=== PATIENT | female | born 1975 | race Caucasian/White ===

== ENCOUNTER 2017-04-09 16:52 | Emergency (ER) | payer OTHER ==
--- NOTE | 2017-04-09 18:13 | PDOC ---
Rapid Medical Evaluation Chief Complaint: Vaginal Bleeding Time Seen by Provider: 04/09/17 18:09 Medical Evaluation: Allergies Allergy/AdvReac Type Severity Reaction Status Date / Time No Known Allergies Allergy Verified 04/09/17 18:10 04/09/17 18:10 pt c/o: 8 weeks , spotting since last week, went to [facility] last week and had u/s, saw Dr. Gabriel after ED visit and received rhogam, c/o mid suprapubic pain Pt on brief exam: vss Pt ordered for : ua, ucx, beta hcg, cbc, comp, and u/s pt to proceed to the ED: Discharge Disposition - Diagnosis Vaginal bleeding during - Referrals - Patient Instructions - Post Discharge Activity
[2017-04-09 18:14] VITALS: BP 118/51; PULSE 90; TEMP 97.8; BMI 38.0
[2017-04-09 19:00] LABS: URINE APPEARANCE CLOUDY; URINE BILIRUBIN NEGATIVE (NEGATIVE); URINE BLOOD 3+ (NEGATIVE); URINE COLOR YELLOW; URINE GLUCOSE (UA) NEGATIVE (NEGATIVE); URINE KETONE NEGATIVE (NEGATIVE); URINE LEUK ESTERASE TRACE (NEGATIVE); URINE NITRITE NEGATIVE (NEGATIVE); URINE UROBILINOGEN NEGATIVE mg/dL (0.2-1.0)
[2017-04-09 19:07] LABS: BASO % 1.2 % (0-2.0); EOS % 2.5 % (0-4.5); HEMATOCRIT 38.1 % (32.4-45.2); HEMOGLOBIN 12.7 GM/dL (10.7-15.3); MCH 28.1 pg (25.7-33.7); MCHC 33.2 g/dl (32.0-36.0); MEAN CELL VOLUME 84.6 fl (80-96); MEAN PLT VOLUME 8.6 fl (7.5-11.1); MONO % 6.1 % (3.8-10.2); NEUT % 66.2 % (42.8-82.8); PLATELET COUNT 318 K/MM3 (134-434); RBC 4.51 M/mm3 (3.60-5.2); RDW 14.4 % (11.6-15.6); WHITE BLOOD COUNT 12.8 K/mm3 (4.0-10.0)
[2017-04-09 19:08] LABS: URINE PROTEIN 2+ (NEGATIVE)
[2017-04-09 19:09] LABS: EPI CELLS RARE /HPF (FEW)
[2017-04-09 19:50] LABS: ALBUMIN 3.6 g/dl (3.4-5.0); ANION GAP 8 (8-16); BILIRUBIN,TOTAL 0.2 mg/dL (0.2-1.0); BLOOD UREA NITROGEN 13 mg/dL (7-18); CALCIUM 9.2 mg/dL (8.5-10.1); CHLORIDE 102 mmol/L (98-107); CO2 26 mmol/L (21-32); CREATININE 0.6 mg/dL (0.55-1.02); GLUCOSE,RANDOM 79 mg/dL (74-106); POTASSIUM 4.4 mmol/L (3.5-5.1); SGOT/AST 18 U/L (15-37); SGPT/ALT 24 U/L (12-78); SODIUM 136 mmol/L (136-145); TOT PROT 7.5 g/dl (6.4-8.2)
[2017-04-09 20:04] LABS: ALK PHOS 102 U/L (45-117)
--- NOTE | 2017-04-09 20:13 | PDOC ---
History of Present Illness - General History Source: Patient Exam Limitations: No Limitations - History of Present Illness Initial Comments: 04/09/17 20:14 The patient is a 8 weeks 41 year old female (), with a significant past medical history of an elected terminated one year ago, who presents to the emergency department with, approx. one week of intermittent vaginal bleeding. The patient reports she went to [facility] on March 31 for evaluation of the vaginal bleeding and was discharged. However , the patient reports that since then the vaginal bleeding has been on and off. The patient reports she followed up with her power tong operator Dr. Ga on April 02 for labs and a Rhogam shot. The patient reports that s/p the follow up visit with Dr. Ga the vaginal bleeding has continued on and off with associated lower pelvic cramping. She denies recent fevers, chills, headache or dizziness. She denies recent nausea, vomit, diarrhea or constipation. She denies recent dysuria, frequency, urgency. She denies recent chest pain or shortness of breath. Allergies: NKA Primary Care Physician: Dr. Eran Blackman Wardrobe Coordinator: Dr. Ga <Terell Hawkins - Last Filed: 04/09/17 20:14> <Gosia Perez - Last Filed: 04/09/17 22:47> - General Chief Complaint: Vaginal Bleeding Stated Complaint: MISCARRIAGE Time Seen by Provider: 04/09/17 18:09 Past History <Terell Hawkins - Last Filed: 04/09/17 20:14> - Past Medical History Asthma: Yes COPD: No DVT: No Dementia: No - Reproductive History Is Patient Now?: Yes - Immunization History Immunization Up to Date: Yes - Suicide/Smoking/Psychosocial Hx Smoking Status: Yes Smoking History: Never smoked Have you smoked in the past 12 months: No Number of Cigarettes Smoked Daily: 0 Information on smoking cessation initiated: No Hx Alcohol Use: No Drug/Substance Use Hx: No Substance Use Type: None <Gosia Perez - Last Filed: 04/09/17 22:47> - Past Medical History Allergies/Adverse Reactions: Allergies Allergy/AdvReac Type Severity Reaction Status Date / Time No Known Allergies Allergy Verified 04/09/17 18:10 Home Medications: Ambulatory Orders Citalopram Hydrobromide [Celexa -] 40 mg PO DAILY 04/09/17 Clonazepam 0.5 mg PO DAILY 04/09/17 Nitrofurantoin Monohyd/M-Cryst [Macrobid -] 100 mg PO BID #14 capsule 04/09/17 Quetiapine Fumarate [Seroquel] 100 tab PO HS 04/09/17 Review of Systems - Review of Systems Comments:: 04/09/17 20:14 GENERAL/CONSTITUTIONAL: No fever or chills. No weakness. HEAD, EYES, EARS, NOSE AND THROAT: No change in vision. No ear pain or discharge. No sore throat. GASTROINTESTINAL: +Lower pelvic cramping. No nausea, vomiting, diarrhea or constipation. GENITOURINARY: +Vaginal bleeding. No dysuria, frequency, or change in urination. CARDIOVASCULAR: No chest pain or shortness of breath. RESPIRATORY: No cough, wheezing, or hemoptysis. MUSCULOSKELETAL: No joint or muscle swelling or pain. No neck or back pain. SKIN: No rash NEUROLOGIC: No headache, vertigo, loss of consciousness, or change in strength/ sensation. ENDOCRINE: No increased thirst. No abnormal weight change. HEMATOLOGIC/LYMPHATIC: No anemia, easy bleeding, or history of blood clots. ALLERGIC/IMMUNOLOGIC: No hives or skin allergy. <Terell Hawkins - Last Filed: 04/09/17 20:14> *Physical Exam - Vital Signs Last Vital Signs Temp Pulse Resp BP Pulse Ox 97.8 F 90 17 118/51 96 04/09/17 18:10 04/09/17 18:10 04/09/17 18:10 04/09/17 18:10 04/09/17 18:10 - Physical Exam Comments: 04/09/17 20:15 Constitutional: +Tearful. Awake, alert, oriented. Head: Normocephalic. Atraumatic Eyes: PERRL. EOMI. Conjunctivae are not pale. ENT: Mucous membranes are moist and intact. Posterior pharynx without exudates or erythema. Uvula midline. Neck: Supple. Full ROM. No lymphadenopathy. Cardiovascular: Regular rate. Regular rhythm. S1, S2 regular. Distal pulses are 2+ and symmetric. Pulmonary/Chest: No evidence of respiratory distress. Clear to auscultation bilaterally No wheezing, rales or rhonchi. Abdominal: Soft and non-distended. There is no tenderness. No rebound, guarding or rigidity. No organomegaly. No palpable masses. Good bowel sounds. Pelvic: +Left adnexal tenderness. No cmt. +Blood in vault but no clots. Os is closed. Back: No CVA tenderness. Musculoskeletal: No edema. No cyanosis. No clubbing. Full range of motion in all extremities. Nocalf tenderness. Radial/pedal pulses are intact and 2+ bilaterally Skin: Skin is warm and dry. No petechiae. No purpura. Neurological: Alert and oriented to person, place, and time. Cranial nerves II -XII are grossly intact. Normal speech. Strength is grossly symmetric. No sensory deficits. Psychiatric: Good eye contact. Normal interaction, affect and behavior. <Terell Hawkins - Last Filed: 04/09/17 20:14> - Vital Signs Last Vital Signs Temp Pulse Resp BP Pulse Ox 97.8 F 90 17 118/51 96 04/09/17 18:10 04/09/17 18:10 04/09/17 18:10 04/09/17 18:10 04/09/17 18:10 <Gosia Perez - Last Filed: 04/09/17 22:47> ED Treatment Course - LABORATORY CBC & Chemistry Diagram: 04/09/17 19:00 04/09/17 19:00 - ADDITIONAL ORDERS Additional order review: Laboratory Results 04/09/17 04/09/17 19:00 18:28 Sodium 136 Potassium 4.4 Chloride 102 Carbon Dioxide 26 Anion Gap 8 BUN 13 Creatinine 0.6 Creat Clearance w eGFR > 60 Random Glucose 79 Calcium 9.2 Total Bilirubin 0.2 AST 18 ALT 24 Alkaline Phosphatase 102 Total Protein 7.5 Albumin 3.6 Beta HCG, Quant 50383.2 Urine Color Yellow Urine Appearance Cloudy Urine pH 6.0 Ur Specific [place] 1.017 Urine Protein 2+ H Urine Glucose (UA) Negative Urine Ketones Negative Urine Blood 3+ H Urine Nitrite Negative Urine Bilirubin Negative Urine Urobilinogen Negative Ur Leukocyte Esterase Trace Urine WBC (Auto) 532 Urine RBC (Auto) 241 Ur Epithelial Cells Rare 04/09/17 19:00 RBC 4.51 MCV 84.6 MCHC 33.2 RDW 14.4 MPV 8.6 Neutrophils % 66.2 Lymphocytes % 24.0 Monocytes % 6.1 Eosinophils % 2.5 Basophils % 1.2 <Terell Hawkins - Last Filed: 04/09/17 20:14> - LABORATORY CBC & Chemistry Diagram: 04/09/17 19:00 04/09/17 19:00 - ADDITIONAL ORDERS Additional order review: Laboratory Results 04/09/17 04/09/17 19:00 18:28 Sodium 136 Potassium 4.4 Chloride 102 Carbon Dioxide 26 Anion Gap 8 BUN 13 Creatinine 0.6 Creat Clearance w eGFR > 60 Random Glucose 79 Calcium 9.2 Total Bilirubin 0.2 AST 18 ALT 24 Alkaline Phosphatase 102 Total Protein 7.5 Albumin 3.6 Beta HCG, Quant 68089.2 Urine Color Yellow Urine Appearance Cloudy Urine pH 6.0 Ur Specific [place] 1.017 Urine Protein 2+ H Urine Glucose (UA) Negative Urine Ketones Negative Urine Blood 3+ H Urine Nitrite Negative Urine Bilirubin Negative Urine Urobilinogen Negative Ur Leukocyte Esterase Trace Urine WBC (Auto) 532 Urine RBC (Auto) 241 Ur Epithelial Cells Rare 04/09/17 19:00 RBC 4.51 MCV 84.6 MCHC 33.2 RDW 14.4 MPV 8.6 Neutrophils % 66.2 Lymphocytes % 24.0 Monocytes % 6.1 Eosinophils % 2.5 Basophils % 1.2 <Gosia Perez - Last Filed: 04/09/17 22:47> Medical Decision Making - Medical Decision Making 04/09/17 20:12 a/p: 41yo at around 8wks gestation with bleeding intermittently x 1 week -threatened ab workup initiated -labs, type and screen, pelvic u/s -ua -pt is passing clots, no tissue visualized -os closed on exam 04/09/17 22:39 u/s showed embryonic demise beta 27,000 04/09/17 22:39 pt received rhogam as oupt 04/09/17 22:[address] Ga - Mikki- blood type, he gave rhogam last week in the office recommended outpt follow up with him this was discussed with the patient also- labs show a UTI, pt admits to frequent urination, will start abx answered all quesitons. discussed ultrasound findings with the patient. discussed labs with the patient. discussed expectant management. discussed heavy bleeding and all reasons to return to the Ed. answered all quesitons. pt h /h stable. pt is stable for d/c to home. <Gosia Perez - Last Filed: 04/09/17 22:47> *DC/Admit/Observation/Transfer - Attestations Scribe Attestion: 04/09/17 20:15 Documentation prepared by Terell Hawkins, acting as medical screener for Gosia Perez DO. <Terell Hawkins - Last Filed: 04/09/17 20:14> - Discharge Dispostion Admit: No - Attestations Physician Attestion: 04/09/17 22:37 I, Dr. Gosia Perez DO, attest that this document has been prepared under my direction and personally reviewed by me in its entirety. I further attest, that it accurately reflects all work, treatment, procedures and medical decision -making performed by me. <Gosia Perez - Last Filed: 04/09/17 22:47> Diagnosis at time of Disposition: Embryonic demise - Discharge Dispostion Disposition: HOME Condition at time of disposition: Stable - Prescriptions Prescriptions: Nitrofurantoin Monohyd/M-Cryst [Macrobid -] 100 mg PO BID #14 capsule - Referrals Referrals: Eran Blackman [Primary Care Provider] - Kana Ga MD [Staff Physician] - - Patient Instructions Printed Discharge Instructions: DI for Miscarriage Additional Instructions: Please make an appointment to see Dr. Ga. Please return to the ED with any further complaints. Please return to the ED if you start bleeding more than 2 pads an hour for over 2 hours. Please practice pelvic rest. Please take tylenol for pain. - Post Discharge Activity
[2017-04-09] MEDS ORDERED: ACETAMINOPHEN 325 MG TABLET (FP) PO ONE (22:38)
[2017-04-09] MEDS ORDERED: NITROFURANTOIN MACROCRYSTAL 50 MG CAPSULE (FP) PO SCH (22:45)
[2017-04-09] MEDS ORDERED: NITROFURANTOIN MACROCRYSTAL 50 MG CAPSULE (FP) ONE (22:53)
[2017-04-09] MEDS ORDERED: ACETAMINOPHEN 325 MG TABLET (FP) ONE (22:53)
== END 2017-04-09 22:58 | disposition home or self-care (01) ==
LOC: JER 16:52
DX: O26.891 Other specified pregnancy related conditions, first trimester (principal); O02.1 Missed abortion; O23.41 Unspecified infection of urinary tract in pregnancy, first trimester; Z3A.08 8 weeks gestation of pregnancy
CPT/HCPCS: 36415; 76801-TC; 80053; 81003; 81015; 84702; 85025; 87086; 99283-25